=== PATIENT | male | born 1980 | race African-American/Black ===

== ENCOUNTER 2025-05-15 21:47 | Inpatient (IN) | payer MEDICAID ==
[~2025-05-15] VITALS: Ht 170.2 cm; Wt 86.6 kg
[2025-05-15] MEDS: IPRATROPIUM BROMIDE (0.02%) 0.5MG/2.5ML NEB HHN SCH (02:36)
[2025-05-15] MEDS: ALBUTEROL (0.083%) 2.5MG/3ML NEB HHN SCH (02:36)
[2025-05-15] MEDS: DEXAMETHASONE 4MG TABLET PO ONE (23:00)
[2025-05-15] MEDS: ONDANSETRON 4MG ODT PO ONE (23:00)
[2025-05-15] MEDS: IBUPROFEN 600MG TABLET PO ONE (23:00)
[2025-05-15] MEDS: VANCOMYCIN 1G PREMIX 200 ML IV ONE (23:30)
[2025-05-15] MEDS: PIPERACILLIN/TAZO 3.375G/50ML 50 ML IV ONE (23:30)
[2025-05-15] MEDS: SULFAMETHOXAZOLE/TRIMETHOPRIM 800/160MG TABLET PO ONE (23:45)
[2025-05-16] VITALS (70 sets, daily range): BP systolic 63–141; BP diastolic 47–117; PULSE 59–92; RESP 10–27; TEMP 36.6–37.1; O2SAT 94–100
[2025-05-16 01:00] LABS: HEMATOCRIT. 25.7 % (42.0-52.0); HEMOGLOBIN. 8.3 g/dL (14.0-18.0); MEAN PLATELET VOLUME 9.4 fl (7.4-10.4); PLATELET 325 x1000/uL (130-400); RED BLOOD CELL COUNT 4.24 mill/uL (4.7-6.1); RED CELL DISTRIBUTION WIDTH 16.4 % (11.6-14.6)
[2025-05-16 01:16] LABS: CREATININE 1.1 mg/dL (0.6-1.3); UREA NITROGEN BLOOD 16 mg/dL (9-23)
[2025-05-16 01:17] LABS: TROPONIN I HIGH SENSITIVITY < 4 ng/L (3.0-53)
[2025-05-16 01:18] LABS: ASPARTATE AMINOTRANSFERASE 93 IU/L (<34); BILIRUBIN DIRECT 0.8 mg/dL (<=3.0); BILIRUBIN TOTAL 1.5 mg/dL (0.1-1.0); PROTEIN TOTAL 8.9 g/dL (6.0-8.3)
[2025-05-16 01:19] LABS: INR 1.1
[2025-05-16] MEDS: ALBUTEROL (0.083%) 2.5MG/3ML NEB HHN SCH (02:15)
[2025-05-16] MEDS: IPRATROPIUM BROMIDE (0.02%) 0.5MG/2.5ML NEB HHN SCH (02:15)
[2025-05-16] MEDS: SODIUM CHLORIDE 0.9% (SEPSIS BOLUS) IV ONE (02:16)
[2025-05-16] MEDS: PIPERACILLIN/TAZO 3.375G/50ML 50 ML IV NR (02:16)
[2025-05-16] MEDS: SULFAMETHOXAZOLE/TRIMETHOPRIM 800/160MG TABLET PO NR (02:17)
[2025-05-16] MEDS: DEXAMETHASONE 4MG TABLET PO NR (02:17)
[2025-05-16] MEDS: IBUPROFEN 600MG TABLET PO NR (02:17)
[2025-05-16] MEDS: ONDANSETRON 4MG ODT PO NR (02:30)
[2025-05-16] MEDS: VANCOMYCIN 1G PREMIX 200 ML IV NR ×2 (03:31→05:40)
[2025-05-16] MEDS: NOREPINEPHRINE 8MG/250ML PMX 250 ML IV PRN (04:52)
[2025-05-16] MEDS ORDERED: IBUPROFEN 400MG TABLET PO PRN (05:00)
[2025-05-16] MEDS ORDERED: ZOLPIDEM TARTRATE 5MG TABLET PO PRN (05:00)
[2025-05-16] MEDS ORDERED: IPRATROPIUM/ALBUTEROL 0.5-3(2.5)MG/3ML NEB HHN PRN (05:00)
[2025-05-16] MEDS ORDERED: DIPHENHYDRAMINE 50MG/ML VIAL IV PRN (05:00)
[2025-05-16] MEDS ORDERED: ACETAMINOPHEN 325MG TABLET PO PRN ×2 (05:00→07:00)
[2025-05-16] MEDS ORDERED: ONDANSETRON HCL 4MG/2ML INJ IV PRN (05:00)
[2025-05-16] MEDS ORDERED: MAGNESIUM/ALUMINUM HYDROXIDE/SIMETHICONE 30ML UDC PO PRN (05:00)
[2025-05-16 06:00] LABS: CLARITY URINE CLEAR (CLEAR); COLOR URINE DARK YELLOW (YELLOW); GLUCOSE URINE NEGATIVE (NEGATIVE); KETONES URINE NEGATIVE (NEGATIVE); LEUKOCYTE ESTERASE URINE 1+ (NEGATIVE); NITRITE URINE NEGATIVE (NEGATIVE); OCCULT BLOOD URINE NEGATIVE (NEGATIVE); PH URINE 6.0 (4.5-8.0); PROTEIN URINE 1+ (NEGATIVE); SPECIFIC GRAVITY URINE 1.014 (1.005-1.030); UROBILINOGEN URINE >8.0 E.U./dL (0.2-1.0)
[2025-05-16 06:07] LABS: INFLUENZA TYPE A Presumptive Negative (Pres. Neg.)
[2025-05-16 06:08] LABS: INFLUENZA TYPE B Presumptive Negative (Pres. Neg.)
[2025-05-16 06:10] LABS: RESPIRATORY SYNCYTIAL VIRUS Not Detected (Not Detectd)
[2025-05-16] MEDS ORDERED: HYDROMORPHONE HCL/PF 2MG/ML INJ IV NR (06:30)
[2025-05-16 06:55] LABS: BAND% 5.0 % (1.0-6.0); LYMPHOCYTES % MANUAL 5.0 % (20.0-50.0); MONOCYTES % MANUAL 4.0 % (2.0-8.0); NEUTROPHILS % MANUAL 86.0 % (45.0-75.0); PLATELET ESTIMATE NORMAL
[2025-05-16] MEDS ORDERED: DOCUSATE SODIUM 100MG CAPSULE PO PRN (07:00)
[2025-05-16] MEDS ORDERED: IPRATROPIUM/ALBUTEROL 0.5-3(2.5)MG/3ML NEB NEB PRN (07:00)
[2025-05-16] MEDS ORDERED: GUAIFENESIN 200MG/10ML SUGAR FREE UDC PO PRN (07:00)
[2025-05-16] MEDS ORDERED: VASOPRESSIN 20 UNIT in SODIUM CHLORIDE 0.9% 99 ML IV PRN (07:00)
[2025-05-16] MEDS: ACETAMINOPHEN 325MG TABLET PO PRN (07:02)
[2025-05-16] MEDS ORDERED: HYDROMORPHONE HCL/PF 1MG/ML INJ IV NR (07:06)
[2025-05-16 08:22] LABS: SQUAMOUS EPITHELIAL CELL URINE 1+ /lpf (RARE/1+)
[2025-05-16 08:23] LABS: BACTERIA URINE TRACE
[2025-05-16 08:24] LABS: RBC URINE NONE SEEN /hpf (0-2)
[2025-05-16] MEDS ORDERED: SODIUM CHLORIDE 0.9% 1,000 ML IV SCH (08:45)
[2025-05-16] MEDS: ENOXAPARIN 30MG/0.3ML SYR SUBCUT SCH (11:05)
[2025-05-16] MEDS: GUAIFENESIN 600MG ER TABLET PO SCH (11:06)
[2025-05-16] MEDS: PANTOPRAZOLE SODIUM 40 MG/VIAL IV SCH (11:06)
[2025-05-16] MEDS: SODIUM CHLORIDE 0.9% 1,000 ML IV SCH (11:06)
[2025-05-16 11:13] LABS: *AMPHETAMINES SCREEN URINE NEGATIVE (NEGATIVE); *BARBITURATES SCREEN URINE NEGATIVE (NEGATIVE); *BENZODIAZEPINES SCREEN URINE NEGATIVE (NEGATIVE); *COCAINE SCREEN URINE NEGATIVE (NEGATIVE); METHADONE URINE SCREEN NEGATIVE (NEGATIVE)
[2025-05-16 11:14] LABS: CANNABINOID URINE SCREEN PRESUMPTIVE POSITIVE (NEGATIVE); ECSTASY MDMA SCREEN URINE NEGATIVE (NEGATIVE); OPIATES URINE SCREEN NEGATIVE (NEGATIVE); PHENCYCLIDINE URINE SCREEN PRESUMTIVE POSITIVE (NEGATIVE)
[2025-05-16 12:22] LABS: HEPATITIS A AB IGM NEGATIVE (Negative)
[2025-05-16 12:23] LABS: HEPATITIS B CORE AB IGM NEGATIVE (Negative); HEPATITIS C AB NON REACTIVE (Neg) (Negative)
[2025-05-16] MEDS ORDERED: PIPERACILLIN/TAZO 3.375G/50ML 50 ML IV SCH (14:00)
[2025-05-16] MEDS: SODIUM CHLORIDE 0.9% 3ML FLUSH IVF SCH (14:00)
[2025-05-16] MEDS: METHYLPREDNISOLONE SOD SUCC 40MG/ML (ACT-O-VIAL) IV SCH (14:21)
[2025-05-16] MEDS: AZITHROMYCIN 500MG/250ML 250 ML IV SCH (14:22)
[2025-05-16] MEDS: PIPERACILLIN/TAZO 3.375G/50ML 50 ML IV SCH (14:23)
[2025-05-16] MEDS ORDERED: DEXTROSE 50% WATER 50ML SYRINGE IV PRN ×2 (18:00)
[2025-05-16] MEDS: BLOOD SUGAR DIAGNOSTIC STRIP TEST SCH (18:16)
[2025-05-16] MEDS: VANCOMYCIN 1GM/200ML PMX (BAXTER) IV SCH (18:18)
[2025-05-16 20:11] LABS: CLARITY URINE CLEAR (CLEAR); GLUCOSE URINE NEGATIVE (NEGATIVE); KETONES URINE NEGATIVE (NEGATIVE); LEUKOCYTE ESTERASE URINE NEGATIVE (NEGATIVE); NITRITE URINE NEGATIVE (NEGATIVE); OCCULT BLOOD URINE NEGATIVE (NEGATIVE); PH URINE 6.5 (4.5-8.0); PROTEIN URINE NEGATIVE (NEGATIVE); SPECIFIC GRAVITY URINE 1.006 (1.005-1.030); UROBILINOGEN URINE 2.0 E.U./dL (0.2-1.0)
[2025-05-16 20:15] LABS: CREATINE KINASE MB FRACTION 1.1 ng/mL (0.5-3.6)
[2025-05-16 20:16] LABS: TROPONIN I HIGH SENSITIVITY < 4 ng/L (3.0-53)
[2025-05-16 20:28] LABS: COLOR URINE STRAW (YELLOW)
[2025-05-16 20:29] LABS: BACTERIA URINE NONE SEEN; RBC URINE NONE SEEN /hpf (0-2); SQUAMOUS EPITHELIAL CELL URINE FEW /lpf (RARE/1+); WBC URINE 0-2 /hpf (0-2)
[2025-05-16] MEDS ORDERED: BLOOD SUGAR DIAGNOSTIC STRIP TEST SCH (21:00)
[2025-05-17] VITALS (79 sets, daily range): BP systolic 79–119; BP diastolic 40–80; PULSE 53–92; RESP 15–34; TEMP 36.1–37; O2SAT 93–100
[2025-05-17] MEDS ORDERED: DEXTROSE 50% WATER 50ML SYRINGE IV PRN (00:30)
[2025-05-17 01:01] LABS: CREATINE KINASE MB FRACTION 0.9 ng/mL (0.5-3.6)
[2025-05-17 01:02] LABS: TROPONIN I HIGH SENSITIVITY < 4 ng/L (3.0-53)
[2025-05-17 01:06] LABS: VITAMIN B12 SERUM 690 pg/mL (211-911)
[2025-05-17] MEDS: BUDESONIDE 0.5MG/2ML NEB HHN SCH (01:12)
[2025-05-17] MEDS: PROMETHAZINE/DEXTROMETHORPHAN 6.25-15MG/5ML PO PRN (04:22)
[2025-05-17] MEDS: BLOOD SUGAR DIAGNOSTIC STRIP TEST SCH (06:00)
[2025-05-17 06:04] LABS: HEMATOCRIT. 26.1 % (42.0-52.0); HEMOGLOBIN. 8.3 g/dL (14.0-18.0); MEAN PLATELET VOLUME 9.3 fl (7.4-10.4); PLATELET 382 x1000/uL (130-400); RED BLOOD CELL COUNT 4.25 mill/uL (4.7-6.1); RED CELL DISTRIBUTION WIDTH 16.4 % (11.6-14.6)
[2025-05-17 06:06] LABS: FOLIC ACID (FOLATE) SERUM 7.68 ng/mL (>5.38)
[2025-05-17] MEDS: INSULIN LISPRO 100 UNITS/ML SUBCUT SCH (06:28)
[2025-05-17 06:32] LABS: CREATININE 0.9 mg/dL (0.6-1.3); UREA NITROGEN BLOOD 17 mg/dL (9-23)
[2025-05-17 06:35] LABS: PHOSPHORUS 2.9 mg/dL (2.5-4.9)
[2025-05-17 08:35] LABS: BAND% 5.0 % (1.0-6.0); LYMPHOCYTES % MANUAL 10.0 % (20.0-50.0); MONOCYTES % MANUAL 5.0 % (2.0-8.0); MYELOCYTES % 4.0 % (0-0); NEUTROPHILS % MANUAL 76.0 % (45.0-75.0); PLATELET ESTIMATE NORMAL
[2025-05-17] MEDS: IPRATROPIUM/ALBUTEROL 0.5-3(2.5)MG/3ML NEB NEB PRN (08:47)
[2025-05-17] MEDS: SODIUM CHLORIDE 0.9% 1,000 ML IV SCH (08:55)
[2025-05-17] MEDS: MIDODRINE HCL 5MG TABLET PO SCH (11:04)
[2025-05-17] MEDS: VANCOMYCIN 1GM/200ML PMX (BAXTER) IV SCH (21:18)
[2025-05-18] VITALS (8 sets, daily range): BP systolic 11–110; BP diastolic 42–67; PULSE 62–84; RESP 16–20; TEMP 36.3–37.1; O2SAT 95–98
[2025-05-18 12:54] LABS: BASOPHILS % 0.6 % (0.0-2.0); EOSINOPHILS % 0.5 % (0.0-5.0); HEMATOCRIT. 25.6 % (42.0-52.0); HEMOGLOBIN. 8.3 g/dL (14.0-18.0); LYMPHOCYTES % 8.7 % (20.0-50.0); MEAN PLATELET VOLUME 8.7 fl (7.4-10.4); MONOCYTES % 7.2 % (2.0-8.0); NEUTROPHILS % 83.0 % (40.0-76.0); PLATELET 432 x1000/uL (130-400); RED BLOOD CELL COUNT 4.13 mill/uL (4.7-6.1); RED CELL DISTRIBUTION WIDTH 16.5 % (11.6-14.6)
[2025-05-18 13:24] LABS: ADD RBC MORPHOLOGY YES; CREATININE 0.9 mg/dL (0.6-1.3); UREA NITROGEN BLOOD 9 mg/dL (9-23)
[2025-05-18 18:24] LABS: PLATELET ESTIMATE NORMAL
[2025-05-19] VITALS: BP 107/57; PULSE 60; RESP 20; TEMP 36.4; O2SAT 98
[2025-05-19 04:00] VITALS: BP 106/60; PULSE 83; RESP 18; TEMP 36.6; O2SAT 98
[2025-05-19 08:00] VITALS: BP 108/69; PULSE 93; RESP 18; TEMP 36.5; O2SAT 99
[2025-05-19 08:08] LABS: BASOPHILS % 0.3 % (0.0-2.0); EOSINOPHILS % 0.9 % (0.0-5.0); HEMATOCRIT. 27.7 % (42.0-52.0); HEMOGLOBIN. 8.8 g/dL (14.0-18.0); LYMPHOCYTES % 7.2 % (20.0-50.0); MEAN PLATELET VOLUME 8.2 fl (7.4-10.4); MONOCYTES % 5.4 % (2.0-8.0); NEUTROPHILS % 86.2 % (40.0-76.0); PLATELET 482 x1000/uL (130-400); RED BLOOD CELL COUNT 4.50 mill/uL (4.7-6.1); RED CELL DISTRIBUTION WIDTH 16.8 % (11.6-14.6)
[2025-05-19 08:13] LABS: CREATININE 0.9 mg/dL (0.6-1.3)
[2025-05-19 08:14] LABS: UREA NITROGEN BLOOD 9 mg/dL (9-23)
[2025-05-19] MEDS: FAMOTIDINE 20MG/2ML VIAL IV SCH (08:27)
[2025-05-19 12:00] VITALS: BP 106/67; PULSE 87; RESP 17; TEMP 36.3; O2SAT 97
[2025-05-19 16:00] VITALS: BP 104/64; PULSE 80; RESP 17; TEMP 36.4; O2SAT 96
[2025-05-19 20:00] VITALS: BP 117/76; PULSE 83; RESP 18; TEMP 36.4; O2SAT 95
[2025-05-20] VITALS: BP 100/59; PULSE 79; RESP 18; TEMP 36.5; O2SAT 97
[2025-05-20 04:00] VITALS: BP 104/57; PULSE 82; RESP 20; TEMP 36.3; O2SAT 97
[2025-05-20 07:53] VITALS: BP 104/57; PULSE 82; RESP 18; TEMP 36.8; O2SAT 98
[2025-05-20 11:33] VITALS: BP 98/68; PULSE 79; RESP 17; TEMP 36.6; O2SAT 97
[2025-05-20 13:07] LABS: % CD 3 POS. LYMPHOCYTES 67.3 % (57.5-86.2); % CD 4 POS. LYMPHOCYTES 20.7 % (30.8-58.5); % CD 8 POS. LYMPH 47.3 % (12.0-35.5)
[2025-05-20 13:59] VITALS: BP 112/71; PULSE 86; RESP 18; TEMP 97.9
[2025-05-20] MEDS: IPRATROPIUM/ALBUTEROL 0.5-3(2.5)MG/3ML NEB HHN SCH (14:36)
[2025-05-20 15:26] VITALS: BP 115/71; PULSE 81; RESP 18; TEMP 36.6; O2SAT 98
[2025-05-22 08:12] LABS: HIV 1 ABS Reactive (Non Reactive); HIV 2 ABS Non Reactive (Non Reactive); HIV SCREEN 4G Preliminary Reactive (Non Reactive)
== END 2025-05-20 16:00 | disposition home or self-care (01) | DRG 720 ==
LOC: ER 21:47 → EDBEDREQ 23:02 → MICUSO 05-16 01:37 → EDBEDREQ 05-16 01:51 → EDBEDREQDT 05-16 01:51 → EDBEDREQTM 05-16 01:51 → CANRESERV 05-16 02:56 → ENRESERV 05-16 02:56 → EDBEDREQSVC 05-16 04:41 → ENRESERV 05-16 07:02 → MICUNO 05-16 08:00 → 7WST 05-17 20:40
PROVIDERS: ADMIT Internal Medicine; ATTEND Internal Medicine
PROC: 02HV33Z Insertion of Infusion Device into Superior Vena Cava, Percutaneous Approach (ICD-10-PCS; principal; 2025-05-16)
PROC: B548ZZA Ultrasonography of Superior Vena Cava, Guidance (ICD-10-PCS; 2025-05-16)
DX: A41.9 Sepsis, unspecified organism (principal); R65.21 Severe sepsis with septic shock; J96.01 Acute respiratory failure with hypoxia; J69.0 Pneumonitis due to inhalation of food and vomit; E87.1 Hypo-osmolality and hyponatremia; Z59.00 Homelessness unspecified; J18.9 Pneumonia, unspecified organism; R00.1 Bradycardia, unspecified; D64.9 Anemia, unspecified; J45.909 Unspecified asthma, uncomplicated; F16.10 Hallucinogen abuse, uncomplicated; R74.01 Elevation of levels of liver transaminase levels; K76.89 Other specified diseases of liver; Z91.148 Patient's other noncompliance with medication regimen for other reason; Z59.01 Sheltered homelessness; Z72.0 Tobacco use
CPT/HCPCS: 36415; 71045; 80048; 80076; 80202; 80305; 81003; 82553; 82607; 82728; 82746; 82962; 83036; 83540; 83550; 83605; 83735; 83880; 83935; 84100; 84145; 84484; 85025; 86359; 86360; 86701; 86702; 86705; 86709; 87070; 87340; 87389; 87420; 87426; 87804; 93005; 93970; 94070; 94640; 99285; A4606; J0456; J1171; J1308; J1650; J1815; J2470; J2543; J2919; J3373; J3490; J7030; J7626; J8540; Q0162